=== PATIENT | male | born 1940 | race Caucasian/White ===

== ENCOUNTER → 2016-09-09 | Outpatient (REF) | payer OTHER ==
[~2016-09-09] MED LIST: *BLDWK7; ASPI1TAB PO; AUG875 PO; BACTRIMDS PO; BACTROOINT TOPICALLY; CAHNTIXC PO; CHAN0.5P PO; ELIDEL TOPICAL; EYELEA INJ; HIBICLENS TOPICAL; LEVA500T PO; LIPITOR20 PO; LOSA50TA20 PO; LOVA20TA2 PO; LOVASTAT20 PO; LUTE20CA PO; MULTCAP PO; OXYC-517 PO; PAXI20TA3 PO; PAXIL20 PO; PAXIL40 PO; RIFAMPIN3 PO; TRENTAL400 PO; TUSSIONEX PO; Trental PO; WELLBUT PO; [UNRECOGNIZED DRUG - OTHER] TOPICAL
== END ==
LOC: M SMT 13:01
PROVIDERS: ATTEND Urology
DX: R10.2 Pelvic and perineal pain (principal)
CPT/HCPCS: 81001; 87086; G0463

== ENCOUNTER → 2016-09-30 | Outpatient (CLI) | payer OTHER ==
[~2016-09-30] MED LIST changes: +ISOVUE-370 76% 100ML VIAL (Q9967) As Ordered ONE
--- NOTE | 2016-10-01 06:01 | REP ---
Clinical: Pelvic pain. Technique: Axial contrast enhanced images from the lung bases to the pubic symphysis using 100 ml Isovue 370 intravenous contrast material with precontrast and delayed images of the abdomen as well as coronal and sagittal re-formations. Comparison: 04/16/2016. Findings: Lung bases demonstrate mild chronic and posterior dependent changes. Visualized heart and pericardium normal. Fatty infiltration to the liver appreciated without focal hepatic lesion identified. Spleen, pancreas, gallbladder, and bilateral adrenal glands are normal. Kidneys demonstrate mild chronic perinephric stranding and bilateral hypodensities compatible with cysts measuring up to 1.4 cm in the right kidney. The enteric system is without obstruction or acute inflammatory process. Few scattered sigmoid diverticula noted without acute diverticulitis. The patient is status post prior right hemicolectomy. Pelvis demonstrates normal bladder and findings to suggest prior prostatectomy. No pelvic fluid or ascites. No free air. No significant adenopathy. Atherosclerotic changes of the aorta and vasculature noted without aneurysm. Surrounding musculoskeletal structures demonstrate age-related changes without focal osseous abnormality. Impression: 1. Fatty infiltration to the liver without focal hepatic lesion identified. 2. Few scattered sigmoid diverticula without acute diverticulitis. 3. Small subcentimeter bilateral renal cysts and 1.4 cm right renal cyst. 4. No acute abdominopelvic pathology appreciated. Signed by Micah Shelton MD 10/01/2016 05:52 A
== END ==
LOC: M RAD 08:07
PROVIDERS: ATTEND Urology
DX: R10.2 Pelvic and perineal pain (principal); K76.0 Fatty (change of) liver, not elsewhere classified; K57.32 Diverticulitis of large intestine without perforation or abscess without bleeding; N28.1 Cyst of kidney, acquired
CPT/HCPCS: 74178; Q9967

== ENCOUNTER → 2017-06-07 | Outpatient (REF) | payer OTHER ==
[2017-06-07 12:45] LABS: PROSTATIC SPECIFIC AG MONITOR 0.22 NG/ML (< 4.0)
== END ==
LOC: M SMT 09:45
DX: Z85.46 Personal history of malignant neoplasm of prostate (principal)
CPT/HCPCS: 84153

== ENCOUNTER → 2018-03-08 | Day surgery (SDC) | payer OTHER ==
[~2018-03-08] MED LIST changes: -*BLDWK7; -ASPI1TAB PO; -AUG875 PO; -BACTRIMDS PO; -BACTROOINT TOPICALLY; -CAHNTIXC PO; -CHAN0.5P PO; -ELIDEL TOPICAL; -EYELEA INJ; -HIBICLENS TOPICAL; -ISOVUE-370 76% 100ML VIAL (Q9967) As Ordered ONE; -LEVA500T PO; +LIDOCAINE 2% INJ 100 MG/5 ML SDV (FOR ANES.) As Ordered; -LIPITOR20 PO; -LOSA50TA20 PO; -LOVA20TA2 PO; -LOVASTAT20 PO; -LUTE20CA PO; -MULTCAP PO; -OXYC-517 PO; -PAXI20TA3 PO; -PAXIL20 PO; -PAXIL40 PO; +PROPOFOL 200 MG/20 ML VIAL As Ordered; -RIFAMPIN3 PO; -TRENTAL400 PO; -TUSSIONEX PO; -Trental PO; -WELLBUT PO; -[UNRECOGNIZED DRUG - OTHER] TOPICAL
[2018-03-08] MEDS: NS 1,000 ML IV (11:18)
== END | disposition home or self-care (01) ==
LOC: M OPP 10:46
DX: Z86.010 Personal history of colon polyps (principal); Z98.0 Intestinal bypass and anastomosis status; D12.3 Benign neoplasm of transverse colon
CPT/HCPCS: 45380

== ENCOUNTER → 2018-06-28 | Outpatient (CLI) | payer MEDICARE ==
[~2018-06-28] MED LIST changes: +*BLDWK7; +ASPI1TAB PO; +AUG875 PO; +BACTRIMDS PO; +BACTROOINT TOPICALLY; +CAHNTIXC PO; +CHAN0.5P PO; +ELIDEL TOPICAL; +EYELEA INJ; +HIBICLENS TOPICAL; +INDA125TA PO; +LEVA1TAB2 PO; -LIDOCAINE 2% INJ 100 MG/5 ML SDV (FOR ANES.) As Ordered; +LIPITOR20 PO; +LOSA50TA88 PO; +LOVA20TA2 PO; +LOVASTAT20 PO; +LUTE20CA PO; +MULTCAP PO; +OCUVTAB4 PO; +OXYC-517 PO; +PAXI20TA29 PO; +PAXIL20 PO; +PAXIL40 PO; +POTA10TA16 PO; -PROPOFOL 200 MG/20 ML VIAL As Ordered; +RIFAMPIN3 PO; +RIVA1DIS2; +TRENTAL400 PO; +TUSSIONEX PO; +Trental PO; +WELLBUT PO; +[UNRECOGNIZED DRUG - OTHER] TOPICAL
--- NOTE | 2018-06-28 09:12 | REP ---
BILATERAL LOWER EXTREMITY DOPPLER ARTERIAL ULTRASOUND: 06/28/2018. Clinical history: Claudication. Findings: There are no prior studies. Pulses on the right include brachial 150, dorsalis pedis with brachial 150, dorsalis pedis 140, RETURNS SUPERVISOR 120 with TATYANA 0.77. On the left brachial pulse 155, dorsalis pedis 140, RETURNS SUPERVISOR 110 with TATYANA 0.71. Right lower extremity: Peak systolic velocity: Phasicity:CAP AND STUD MACHINE OPERATOR: 154 cm/S triphasicProfunda: 119 cm/S biphasicSFA proximal: 122 cm/S triphasicSFA mid: 125 cm/S biphasicSFA distal: 109 cm/S biphasicPopliteal: 61 cm/S biphasicATA proximal: 44 cm/S biphasicTibioperoneal trunk: 41 cm/S biphasicPTA proximal: 43 cm/S biphasicPTA distal: 56 cm/S biphasicATA distal: 70 cm/S biphasic Left lower extremity: Peak systolic velocity: Phasicity:CAP AND STUD MACHINE OPERATOR: 145 cm/S triphasicProfunda: 271 cm/S monophasicSFA proximal: 204 cm/S monophasicSFA mid: 71 cm/S biphasicSFA distal: 60 cm/S biphasicPopliteal: 38 cm/S biphasicATA proximal: 37 cm/S biphasicTibioperoneal trunk: 36 cm/S biphasicPTA proximal: 57 cm/S biphasicPTA distal: 29 cm/S biphasicATA distal: 61 cm/S biphasic. There is scattered calcific plaque in small moderate volumes bilaterally. No visible significant stenosis on the right on the left. There is a stenosis in the left common femoral artery at the bifurcation. Another along the proximal SFA. Electronically Signed by Obie Castro MD 06/28/2018 08:33 P
== END ==
LOC: M RAD 06:20
PROVIDERS: ATTEND Surgery Vascular Surgery
DX: I70.213 Atherosclerosis of native arteries of extremities with intermittent claudication, bilateral legs (principal)

== ENCOUNTER 2018-10-19 10:51 | Emergency (ER) | payer MEDICARE ==
[~2018-10-19] VITALS: Ht 180.3 cm; Wt 97.7 kg
[~2018-10-19 10:51] MED LIST changes: -ASPI1TAB PO; +ASPI81TA26 PO
[2018-10-19] MEDS ORDERED: ASPIRIN 81 MG CHEW TABLET PO ONE (11:30)
[2018-10-19 11:39] LABS: BASO # 0.1 10^3/uL (0.0-0.2); BASO % 0.8 % (0.0-1.0); EOS # 0.1 10^3/uL (0.0-0.50); EOS % 1.3 % (0.0-3.0); HEMATOCRIT 40.8 % (42.0-52.0); HEMOGLOBIN 13.7 g/dl (13.5-17.5); LYMPH # 1.2 10^3/uL (1.5-4.5); LYMPH % 19.9 % (24.0-44.0); MEAN CORPUSCULAR HEMOGLOBIN 33.2 pg (27.0-33.0); MEAN CORPUSCULAR HGB CONC 33.6 g/dl (32.0-36.5); MEAN CORPUSCULAR VOLUME 98.8 fl (80.0-96.0); MONO # 0.6 10^3/uL (0.0-0.8); MONO % 8.9 % (0.0-5.0); NEUTROPHILS # 4.3 10^3/uL (1.8-7.7); NEUTROPHILS % 68.8 % (36.0-66.0); PLATELET COUNT, AUTOMATED 229 10^3/uL (150-450); RED BLOOD COUNT 4.13 10^6/uL (4.30-6.10); WHITE BLOOD COUNT 6.2 10^3/uL (4.0-10.0)
[2018-10-19 12:05] LABS: CALCIUM LEVEL 8.8 MG/DL (8.8-10.2); CK-MB VALUE MASS 1.1 NG/ML (<3.6); CREATININE FOR GFR 1.37 MG/DL (0.70-1.30); GLOMERULAR FILTRATION RATE 53.9 (>42); MB/CK RELATIVE INDEX 1.11 (< OR =4); POTASSIUM SERUM 3.6 MEQ/L (3.5-5.1); TROPONIN I 0.04 NG/ML (< 0.10)
--- NOTE | 2018-10-19 12:27 | REP ---
Clinical: Chest pain . Comparison: 04/16/2016 . Findings: The mediastinum and cardiac silhouette are stable and within normal limits for portable technique. The lung alonzo are clear without acute consolidation, effusion, or pneumothorax. Skeletal structures are intact. Impression: No acute cardiopulmonary process appreciated. Electronically Signed by Micah Shelton MD 10/19/2018 12:18 P
--- NOTE | 2018-10-19 13:33 | REP ---
KUB ABDOMEN AND PELVIS: Two KUB films of abdomen and pelvis performed. There is mild to moderate scattered fecal material throughout the colon. No dilated small bowel loops are seen There are diffuse degenerative changes of the spine. Tiny phlebolith is seen in the left pelvis. IMPRESSION: Mild to moderate diffuse fecal material in the colon. Electronically Signed by Vinicius Barnard MD 10/19/2018 04:33 P
[2018-10-19 13:57] LABS: CK-MB VALUE MASS < 1.0 NG/ML (<3.6); CPK CREATINE PHOSPHOKINASE 98 U/L (39-308); MB/CK RELATIVE INDEX 1.02 (< OR =4); TROPONIN I 0.05 NG/ML (< 0.10)
[2018-10-19 14:45] VITALS: BP 159/78
[2018-10-19] MEDS ORDERED: ASPI81TA85 PO (14:51)
[2018-10-19] MEDS ORDERED: PENT400T23 PO (14:51)
[2018-10-19] MEDS ORDERED: MIRA3350 PO (14:52)
[2018-10-19] MEDS ORDERED: COLA100C5 PO (14:52)
--- NOTE | 2018-10-20 10:28 | ECGEPIP ---
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
--- NOTE | 2018-10-20 10:31 | ECGEPIP ---
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
== END 2018-10-19 15:15 | disposition home or self-care (01) ==
LOC: M ED 10:51
DX: K59.00 Constipation, unspecified (principal); R10.9 Unspecified abdominal pain; E78.5 Hyperlipidemia, unspecified; I25.10 Atherosclerotic heart disease of native coronary artery without angina pectoris; G62.9 Polyneuropathy, unspecified; N40.0 Benign prostatic hyperplasia without lower urinary tract symptoms; I73.9 Peripheral vascular disease, unspecified; Z95.5 Presence of coronary angioplasty implant and graft; Z85.46 Personal history of malignant neoplasm of prostate

== ENCOUNTER → 2018-12-14 | Outpatient (CLI) | payer MEDICARE ==
[~2018-12-14] MED LIST changes: +ASPI81TA85 PO; +COLA100C5 PO; +MIRA3350 PO; +PENT400T23 PO; +PROHANCE 279.3MG/ML 5ML VIAL (A9576) As Ordered ONE
--- NOTE | 2018-12-15 08:37 | REP ---
MRI of the brain without and with contrast Indication: Benign neoplasm of the meninges. Comparison: None Technique: MRI of the brain was performed utilizing axial T1, T2, FLAIR, DWI and sagittal T1 FLAIR. Following the uneventful intravenous administration of 9.7 mL of ProHance, axial coronal and T1-1 FLAIR sequences were acquired. Findings: There is a 35 x 23 x 7 mm (AP, TR, CC) dural-based homogeneously enhancing lesion along the left sphenoid wing consistent with meningioma. This lesion is T1 isointense and T2 slightly hyperintense signal. There is mild local mass effect. There is no midline shift or basal cistern effacement. No other mass is identified. There is no restricted effusion to suggest acute ischemia or infarction. There is a chronic lacunar infarct within the left basal ganglia. There are moderate scattered T2 hyperintensity within the periventricular, subcortical and pontine white matter show nonspecific but suggestive of microvascular ischemic disease. The visualized flow voids are patent. The left kaibab ocular lens is surgically absent. The visualized paranasal sinuses and left mastoid air cells are clear. There is fluid within the right mastoid air cells. Impression: 35 x 23 x 7 mm dural-based enhancing lesion along the left sphenoid wing consistent with meningioma. No acute ischemia or infarction. Chronic lacunar infarct within the left basal ganglia. Moderate white matter changes. Electronically Signed by Paige Murphy MD 12/15/2018 08:29 A
== END ==
LOC: M RAD 16:22
PROVIDERS: ATTEND Family Medicine
DX: D32.9 Benign neoplasm of meninges, unspecified (principal)
CPT/HCPCS: 70553; A9576

== ENCOUNTER → 2019-02-02 | Outpatient (CLI) | payer MEDICARE ==
[~2019-02-02] MED LIST changes: +FLUO1SOL TOP; +METRCRM TOP; -PROHANCE 279.3MG/ML 5ML VIAL (A9576) As Ordered ONE
--- NOTE | 2019-02-03 09:59 | RADONC ---
RADIATION ONCOLOGY CONSULTATION NOTE DATE: 02/02/2019 CHART NUMBER: [id number] DIAGNOSIS: Prostate cancer. STAGE: Stage II C, T2b, N0, M0, PSA 18.8, [place] score 8 (4-4), grade group 4. ECOG PERFORMANCE STATUS: 1 CONSULTATION NOTE: Mr. Ragland is a very pleasant, 78-year-old white male with the diagnosis of a biochemical recurrence of a stage II C, T2b, N0, M0, poorly differentiated [place] score 8 (4-4) adenocarcinoma of the prostate, grade group 4 with an initial PSA level of 18.8. HISTORY OF PRESENT ILLNESS: The patient was in his usual state of health, who was found to have an elevated PSA on 06/26/2015 of 18.80. On 10/15/2015, the patient underwent robotic-assisted radical prostatectomy and pelvic lymph node sampling. Pathology revealed a Oskalo[place] score 8 (4-4) adenocarcinoma of the prostate. The carcinoma was bilateral. The dominant tumor nodule measured 2.5 cm. The percent of prostate involved with tumor was 15%. Carcinoma was seen on the inked margin of the right posterior superior section of the specimen. In addition, there were multiple areas of perineural invasion. Two left pelvic lymph nodes and two right pelvic lymph nodes were sampled and negative for metastatic disease. The patient was followed and his initial postoperative PSA level went down to 0.2. Over the last 4 years it has slowly risen and as of 01/03/2019 has reached 0.4. The patient is now being referred to us status post robotic-assisted radical prostatectomy for consideration of postoperative radiation therapy in attempt to achieve local control in this patient with positive margins, perineural invasion and biochemical recurrence. PAST MEDICAL HISTORY: The patient's past medical history is positive for arthritis, hypertension and a stroke, macular degeneration. He reports that he has had colon resection on 01/30/2008. He had cardiac stents done in June of 2012. He had a stent replacement in June 2013. He has had knee surgery, an appendectomy and hand surgery. He had right elbow surgery. Apparently, some time ago the patient had a stroke but he is unaware of when this happened. ALLERGIES: The patient has NO KNOWN DRUG ALLERGIES. SOCIAL HISTORY: The patient has smoked 1-1/2 packs of cigarettes per day for 53 years. He quit in 2007. He does not abuse alcohol. FAMILY HISTORY: The patient's family history is positive for a father with liver cancer and a sister with some type of cancer. REVIEW OF SYSTEMS: The patient's review of systems is positive for hearing loss, decreased energy, weakness in his arms and legs, occasional headaches, some anxiety and depression, anorexia, visual disturbances due to his macular degeneration, occasional dizziness and physical limitations since his stroke. He denies nausea, vomiting, fevers, chills, night sweats, chest pain, rectal bleeding, urinary or bowel difficulties, or bone pain. PHYSICAL EXAMINATION: The patient is a well-developed, well-nourished male in no acute distress. HEENT exam is normocephalic, atraumatic. Extraocular movements are intact. There is no palpable cervical, supraclavicular, infraclavicular, axillary, or inguinal lymphadenopathy present. Lungs are clear to auscultation and percussion. Heart has a regular rate and rhythm. Abdomen is benign with no hepatosplenomegaly, masses, or tenderness. Rectal examination reveals a normal anal sphincter tone. The patient's prostate bed is smooth with no evidence of nodularity. Skeletal examination reveals no tenderness to pressure or percussion of the bony skeleton. Extremities reveal no clubbing, cyanosis, or edema. Neurologic exam is grossly intact, as is the remainder of the physical examination. ASSESSMENT: Clearly the patient is a candidate for external beam radiation therapy and I have so informed him. I have discussed with the patient in detail the potential benefits as well as possible acute and chronic sequelae of external beam radiation therapy. We discussed logistics of treatment planning, simulation and subsequent fractionated daily radiation treatments. I have scheduled the patient for the next available simulation slot and radiation treatments will begin subsequently. Thank you for allowing us to participate in the care of this very pleasant gentleman. If I could be of any further assistance or provide you with any information, please feel free to contact me anytime. As always, warm regards. cc: MD Dave Bridges MD
== END ==
LOC: M ONCR 13:36
PROVIDERS: ATTEND Radiology Radiation Oncology
DX: C61 Malignant neoplasm of prostate (principal)

== ENCOUNTER → 2019-02-16 | Outpatient (RCR) | payer MEDICARE ==
[2019-02-06 11:09] LABS: HEMATOCRIT 40.7 % (42.0-52.0); HEMOGLOBIN 13.5 g/dl (13.5-17.5); LYMPH % 21.7 % (24.0-44.0); MEAN CORPUSCULAR HEMOGLOBIN 33.7 pg (27.0-33.0); MEAN CORPUSCULAR HGB CONC 33.2 g/dl (32.0-36.5); MEAN CORPUSCULAR VOLUME 101.4 fl (80.0-96.0); NEUTROPHILS % 72.1 % (36.0-66.0); RED BLOOD COUNT 4.01 10^6/uL (4.30-6.10)
--- NOTE | 2019-02-07 08:05 | RADONC ---
RADIATION ONCOLOGY SIMULATION NOTE DATE: 02/06/2019 CHART #: [id number] SIMULATION NOTE: This patient has a diagnosis of a malignant neoplasm of the prostate, stage II C, [id number], grade 4. He is status post prostatectomy and we will be treating with radiotherapy to the prostatic bed. The patient was placed in an appropriate position (supine) after an immobilization device was constructed. The patient was immobilized successfully with the immobilization device and 3 mm images were captured through the area of the pelvic region for treatment planning purposes. The patient tolerated the simulation process as well as fabrication of the immobilization device very well with no significant untoward side effects. I was present during the entire time of the simulation which went without any major issues. After the images are evaluated and contoured, a plan will be generated. [facility]
--- NOTE | 2019-02-13 09:55 | RADONC ---
RADIATION ONCOLOGY PROGRESS NOTE DATE: 02/13/2019 CHART #: [id number] Mr. Ragland came in today for his first fraction of radiation to his prostate. It was tolerated without difficulty or discomfort. The patient came in today reporting that he had some dizziness. He felt a little dizzy and went to sit down in our waiting room, but ended up falling. The patient reports that he has fallen a lot over the last 2 years, he gets dizzy when he stands up. We took the patient's vital signs and he appears to have orthostatic changes. The patient reports that he is a patient of Dr. Kruse, a folder seamer here. The patient's says that he has not had any fluid or other intake since 4 o'clock yesterday afternoon, for now making that now 18 hours. He has no other complaints at this time. PHYSICAL EXAMINATION: As noted above, vital signs were taken. The skin clearly showed no evidence of radiation change present. Vital signs are documented in our electronic medical record. Radiation was well tolerated and will continue as scheduled. He has been instructed to contact his folder seamer and primary care physician as well as to have some oral intake.
== END ==
LOC: M ONCR 02-06 10:08
PROVIDERS: ATTEND Radiology Radiation Oncology
DX: C61 Malignant neoplasm of prostate (principal)

== ENCOUNTER 2019-03-15 08:53 | Outpatient (RCR) | payer MEDICARE ==
--- NOTE | 2019-02-20 13:39 | RADONC ---
RADIATION ONCOLOGY PROGRESS NOTE DATE OF SERVICE: 02/20/2019 CHART NUMBER: [id number]. PROGRESS NOTE: Obie Infante with the diagnosis of adenocarcinoma of the prostate is currently receiving local regional radiotherapy; and thus far, he has achieved a dose of 1080 cGy. He appears to be tolerating his radiotherapy reasonably well, denying any nausea or specific side effects related to his disease or to his treatments. REVIEW OF SYSTEMS: He specifically denies any nausea, vomiting, diarrhea, dysuria, hematuria, or blood per rectum. His energy level is such that he is able to maintain most day-to-day activities without any alteration of his lifestyle. Skin irritation is denied. EXAMINATION AND FINDINGS: The skin within the irradiated volume shows neither erythema nor desquamation. Lymphatics: No palpable peripheral lymphadenopathy is appreciated. Lungs are clear to auscultation and percussion. Heart: Regular without murmurs. The remainder of the physical examination is unchanged. IMPRESSION: Tolerating therapy well. PLAN: Treatments to continue. MTDD
--- NOTE | 2019-02-27 10:10 | RADONC ---
RADIATION ONCOLOGY PROGRESS NOTE DATE: 02/27/2019 CHART NUMBER: [id number] Mr. Ragland is presently at a dose of 1980 cGy to his prostate bed and is tolerating treatments quite well at this point with no complaints related to his radiation therapy. He is having no urinary or bowel difficulties and no bone pain. REVIEW OF SYSTEMS: The patient's review of systems is noncontributory. He denies nausea, vomiting, fevers, chills, night sweats, diplopia, headaches, anxiety or depression, anorexia, weight loss, visual disturbances, chest pain, urinary or bowel difficulties, bone pain or neurological problems. PHYSICAL EXAMINATION The patient's skin is in good condition with no evidence of radiation change present. There is no moist or dry desquamation. The remainder of his physical exam remains unchanged. Mr. Ragland is tolerating treatments quite well and radiation will continue as scheduled.
--- NOTE | 2019-03-07 09:24 | RADONC ---
RADIATION ONCOLOGY PROGRESS NOTE DATE: 03/06/2019 CHART NUMBER: [id number] PROGRESS NOTE: Mr. Ragland is presently at a dose of 2880 cGy to his prostate bed and is tolerating treatments quite well at this point with no complaints related to his radiation therapy. He is having no urinary or bowel difficulties and no bone pain. REVIEW OF SYSTEMS: The patient's review of systems is noncontributory. Denies nausea, vomiting, fevers, chills, night sweats, diplopia, headaches, anxiety or depression, anorexia, weight loss, visual disturbances, chest pain, urinary or bowel difficulties, bone pain, or neurological problems. PHYSICAL EXAMINATION: The patient's skin is in good condition with no evidence of radiation change present. There is no moist or dry desquamation. The remainder of his physical exam remains unchanged. Mr. Ragland is tolerating treatments quite well and radiation will continue as scheduled.
--- NOTE | 2019-03-15 07:19 | RADONC ---
RADIATION ONCOLOGY PROGRESS NOTE DATE: 03/13/2019 CHART #; [id number] Mr. Ragland is presently at a dose of 3780 cGy to his prostate bed and is tolerating treatments quite well at this point with no complaints related to his radiation therapy other than some loose bowel movements. REVIEW OF SYSTEMS: The patient's review of systems is positive for a recent loose bowel movement but is otherwise noncontributory. Denies nausea, vomiting, fevers, chills, night sweats, diplopia, headaches, anxiety or depression, anorexia, weight loss, visual disturbances, chest pain, urinary or bowel difficulties, bone pain, or neurological problems. PHYSICAL EXAMINATION: The patient's skin is in good condition with no evidence of moist or dry desquamation. The remainder of his physical exam remains unchanged. Mr. Ragland is tolerating treatments quite well and radiation will continue as scheduled.
== END 2019-03-18 ==
LOC: M ONCR 08:53
PROVIDERS: ATTEND Radiology Radiation Oncology
DX: C61 Malignant neoplasm of prostate (principal)

== ENCOUNTER 2019-04-06 08:56 | Outpatient (RCR) | payer MEDICARE ==
--- NOTE | 2019-03-21 10:33 | RADONC ---
RADIATION ONCOLOGY NOTE DATE OF SERVICE: 03/21/2019 CHART #: [id number] Mr. Ragland who carries a diagnosis of prostate CA whose radiation is delivered to his prostatic bed. So far, he has received a dose of 5400 cGy in 180 cGy daily fractions. He has no complaints. He denies any urinary frequency, dysuria, hematuria. He denies bowel problems. Nocturia twice. Treatment will continue as planned.
--- NOTE | 2019-03-27 13:13 | RADONC ---
RADIATION ONCOLOGY PROGRESS NOTE DATE: 03/27/2019 CHART NUMBER: [id number] Mr. Ragland is presently at a dose of 5220 cGy to his prostate bed and is tolerating treatments quite well at this point with no complaints related to his radiation therapy. He is having no urinary or bowel difficulties and no bone pain. The patient's review of systems is noncontributory. Denies nausea, vomiting, fevers, chills, night sweats, diplopia, headaches, anxiety or depression, anorexia, weight loss, visual disturbances, chest pain, urinary or bowel difficulties, bone pain, or neurological problems. PHYSICAL EXAMINATION: The patient's skin is in good condition with no evidence of radiation change present. There is no moist or dry desquamation. The remainder of his physical exam remains unchanged. Mr. Ragland is tolerating treatments quite well and radiation will continue as scheduled.
--- NOTE | 2019-04-05 06:27 | RADONC ---
RADIATION ONCOLOGY PROGRESS NOTE DATE: 04/03/2019 CHART #: [id number] Mr. Ragland is presently at a dose of 6160 cGy to his prostate bed and is tolerating treatments quite well at this point with no significant difficulties related to his radiation therapy. He does complain of some fatigue. REVIEW OF SYSTEMS: The patient's review of systems is positive for fatigue but is otherwise noncontributory. Denies nausea, vomiting, fevers, chills, night sweats, diplopia, headaches, anxiety or depression, anorexia, weight loss, visual disturbances, chest pain, urinary or bowel difficulties, bone pain, or neurological problems. PHYSICAL EXAMINATION: The patient's skin is in good condition with no evidence of moist or dry desquamation. The remainder of his physical exam remains unchanged. Mr. Ragland is tolerating treatments quite well and radiation will continue as scheduled.
--- NOTE | 2019-04-10 14:36 | RADONC ---
RADIATION ONCOLOGY TREATMENT SUMMARY DATE: 04/06/2019 CHART NUMBER: [id number] DIAGNOSIS: Prostate cancer. STAGE: IIC, [id number], PSA 18.8, Krysta score 8 (4-4), grade group 4. ECOG PERFORMANCE STATUS: 1 TREATMENT SUMMARY: Mr. Ragland is a very pleasant 78-year-old white male with the diagnosis of a biochemical recurrence of a stage IIC, [id number], poorly differentiated, [place] score 8 (4-4) adenocarcinoma of the prostate, grade group 4 with an initial PSA level of 18.8. We treated the patient to his prostate bed for a total dose of 6660 cGy delivered in 37 fractions of 180 cGy each over 51 elapsed days from 02/13/2019 through 04/06/2019. The patient's prostate bed was treated on the linear accelerator utilizing a 3D conformal technique with a 15 MV photon beam via anterior-posterior left and right lateral alonzo. We initially treated a larger field to a dose of 4500 cGy to include the first echelon of lymph nodes and subsequently coned down to the prostate bed itself for an additional 2160 cGy, once again bringing the prostate bed to a total dose of 6660 cGy. Mr. Ragland tolerated his treatments quite well and was able to complete therapy as prescribed. I have scheduled the patient to see me again in 1 month for further followup. He will also continue to follow his other physicians as well. Thank you for allowing us to participate in the care of this very pleasant gentleman. If I could be of any further assistance or provide you with any information, please feel free to contact me at anytime. cc: MD Dave Bridges MD [facility]
== END 2019-04-18 ==
LOC: M ONCR 08:56
PROVIDERS: ATTEND Radiology Radiation Oncology
DX: C61 Malignant neoplasm of prostate (principal)

== ENCOUNTER → 2019-05-10 | Outpatient (CLI) | payer MEDICARE ==
--- NOTE | 2019-05-11 07:41 | RADONC ---
RADIATION ONCOLOGY FOLLOWUP NOTE DATE: 05/10/2019 CHART #: [id number] DIAGNOSIS: Prostate cancer. STAGE: II C, T2b, N0, M0, initial PSA 18.8, Krysta score 8 (4-4), grade group 4. ECOG PERFORMANCE STATUS: 1. FOLLOWUP NOTE: Mr. Ragland is a very pleasant 78-year-old white male with the diagnosis of a biochemical recurrence of a stage II C, T2b, N0, M0, poorly differentiated Krysta score 8 (4-4) adenocarcinoma of prostate, grade group 4, with initial PSA level of 18.8, who is presenting to us today for routine followup visit 1 month post completion of external beam radiation therapy. The patient presents today reporting that he is doing quite well with no complaints at this time related to his radiation therapy or disease. He is having no urinary or bowel difficulties. No bone pain. REVIEW OF SYSTEMS: The patient's review of systems is noncontributory. Denies nausea, vomiting, fevers, chills, night sweats, diplopia, headaches, anxiety or depression, anorexia, weight loss, visual disturbances, chest pain, urinary or bowel difficulties, bone pain, or neurological problems. PHYSICAL EXAMINATION: The patient is a well-developed, well-nourished male in no acute distress. HEENT exam is normocephalic, atraumatic. Extraocular movements are intact. There is no palpable cervical, supraclavicular, infraclavicular, axillary, or inguinal lymphadenopathy present. Lungs are clear to auscultation and percussion. Heart has a regular rate and rhythm. Abdomen is benign with no hepatosplenomegaly, masses, or tenderness. Rectal examination reveals a normal anal sphincter tone. His prostate bed is smooth with no evidence of nodularity. Skeletal examination reveals no tenderness to pressure or percussion of the bony skeleton. Extremities reveal no clubbing, cyanosis, or edema. Neurologic exam is grossly intact, as is the remainder of the physical examination. ASSESSMENT: The patient is clinically NANCY at this time. I await the results of his PSA test which is done today and I do not have at this time. The patient is scheduled to be seen by Dr. Dangelo in 3 months and will continue his routine followup at Dr. Dangelo's office. He is therefore being discharged from my followup except on a p.r.n. basis. cc: MD Dave Bridges MD
== END ==
LOC: M ONCR 09:12
PROVIDERS: ATTEND Radiology Radiation Oncology
DX: Z85.46 Personal history of malignant neoplasm of prostate (principal)
CPT/HCPCS: 36415; 84153; G0463

== ENCOUNTER 2019-10-27 12:36 | Emergency (ER) | payer MEDICARE ==
[~2019-10-27] VITALS: Ht 180.3 cm; Wt 93.0 kg
[2019-10-27 13:00] LABS: BASO # 0.1 10^3/uL (0.0-0.2); BASO % 0.8 % (0.0-1.0); EOS # 0.1 10^3/uL (0.0-0.5); EOS % 0.7 % (0.0-3.0); HEMOGLOBIN 13.4 g/dl (13.5-17.5); LYMPH # 1.1 10^3/uL (1.5-5.0); LYMPH % 14.8 % (24.0-44.0); MEAN CORPUSCULAR HEMOGLOBIN 33.2 pg (27.0-33.0); MEAN CORPUSCULAR HGB CONC 34.4 g/dl (32.0-36.5); MEAN CORPUSCULAR VOLUME 96.5 fl (80.0-96.0); MONO # 0.7 10^3/uL (0.0-0.8); MONO % 8.9 % (0.0-5.0); NEUTROPHILS # 5.6 10^3/uL (1.5-8.5); NEUTROPHILS % 74.5 % (36.0-66.0); PLATELET COUNT, AUTOMATED 240 10^3/uL (150-450); RED BLOOD COUNT 4.04 10^6/uL (4.30-6.10); WHITE BLOOD COUNT 7.5 10^3/uL (4.0-10.0)
[2019-10-27] MEDS ORDERED: NS 1,000 ML IV ONE (13:00)
[2019-10-27 13:33] LABS: ACETAMINOPHEN LEVEL < 2.0 UG/ML (10.0-30.0); ALT/SGPT 27 U/L (12-78); BILIRUBIN,DIRECT 0.1 MG/DL (0.0-0.2); BILIRUBIN,TOTAL 0.5 MG/DL (0.2-1.0); BLOOD UREA NITROGEN 22 MG/DL (7-18); CALCIUM LEVEL 9.1 MG/DL (8.8-10.2); CARBON DIOXIDE LEVEL 23 MEQ/L (21-32); CHLORIDE LEVEL 107 MEQ/L (98-107); CREATININE FOR GFR 1.62 MG/DL (0.70-1.30); GLOMERULAR FILTRATION RATE 44.3 (>42); GLUCOSE, FASTING 99 MG/DL (70-100); POTASSIUM SERUM 3.9 MEQ/L (3.5-5.1); SALICYLATE LEVEL < 1.7 MG/DL (5.0-30.0); SODIUM LEVEL 139 MEQ/L (136-145); TOTAL PROTEIN 6.9 GM/DL (6.4-8.2)
[2019-10-27 13:34] LABS: ETHYL ALCOHOL (ETHANOL) < 0.003 % (0.000-0.010)
[2019-10-27 14:45] VITALS: BP 139/70
[2019-10-27 15:09] LABS: AMPHETAMINES LEVEL URINE NEGATIVE (NEGATIVE); BARBITURATES URINE NEGATIVE (NEGATIVE); BENZODIAZEPINES URINE NEGATIVE (NEGATIVE); CANNABINOIDS URINE NEGATIVE (NEGATIVE); COCAINE METABOLITE URINE NEGATIVE (NEGATIVE); METHADONE URINE NEGATIVE (NEGATIVE); OPIATES URINE NEGATIVE (NEGATIVE); PHENCYCLIDINE URINE NEGATIVE (NEGATIVE)
--- NOTE | 2019-10-27 15:25 | REP ---
CT BRAIN WITHOUT CONTRAST: CT brain performed without IV contrast. Coronal reconstructions are performed. There is moderate atrophy. There no midline shift or mass effect. There is periventricular small vessel ischemic change, which is chronic in nature. 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 No acute hemorrhage is seen. There is no extra-axial fluid collection. Vascular calcifications are seen in the carotid siphons. Visualized paranasal sinuses are clear. IMPRESSION: Chronic changes. No acute intracranial hemorrhage, midline shift, or mass effect. Electronically Signed by Vinicius Barnard MD 10/29/2019 11:22 P
--- NOTE | 2019-10-27 16:25 | REP ---
REASON FOR EXAM: Altered mental status. FINDINGS: The technique utilized in obtaining the radiograph has magnified the cardiac silhouette and accentuated the interstitial markings. The superior mediastinal structures are midline. The cardiac silhouette is unremarkable in size, shape, and position. The diaphragmatic surfaces of the lungs are regular, and the costophrenic angles are clear. The pulmonary alonzo are clear. The imaged osseous structures are intact. IMPRESSION: There is no acute cardiopulmonary disease. Electronically Signed by Elia Philippe DO 10/27/2019 04:55 P
--- NOTE | 2019-10-27 21:36 | ECGEPIP ---
[facility] - ED Test Date: 2019-10-27 Pat Name: JUSTO SHEIKH Department: Room: - Gender: Male [place] Consultant: lina : 1940 Requested By: MARY PRASAD Order Number: [id number] Reading MD: Julita Wilson Measurements Intervals [place] Rate: 92 P: MN: 0 QRS: -47 QRSD: 129 T: 83 QT: 361 QTc: 447 Interpretive Statements SINUS RHYTHM LEFT ANTERIOR FASCICULAR BLOCK LEFT VENTRICULAR HYPERTROPHY AND ST-T CHANGE IVCD Electronically Signed on 10-27-2019 21:36:06 EDT by Julita Wilson
--- NOTE | 2019-10-28 07:35 | REP ---
CT CERVICAL SPINE: CT cervical spine performed in the axial plane. Sagittal and coronal reconstruction images are performed. There is no compression fracture or malalignment. There is no prevertebral soft tissue swelling. There is moderate diffuse spurring. There is moderate disc space narrowing and subchondral sclerosis at C5-6. There is slight retrolisthesis of C5 on C6. There is diffuse sclerosis and spurring at the posterior facet joints. There is neural foraminal narrowing on the right at C3-4, C4-5, and C5-6. There is mild spinal stenosis at C5-6. IMPRESSION: Degenerative changes, as above. No evidence of acute fracture or dislocation. Electronically Signed by Vinicius Barnard MD 10/29/2019 11:22 P
== END 2019-10-27 15:08 | disposition home or self-care (01) ==
LOC: M ED 12:36
DX: R41.0 Disorientation, unspecified (principal); T67.3XXA Heat exhaustion, anhydrotic, initial encounter; Y92.9 Unspecified place or not applicable; Y93.9 Activity, unspecified; I44.4 Left anterior fascicular block; I45.89 Other specified conduction disorders; I51.9 Heart disease, unspecified; M46.02 Spinal enthesopathy, cervical region; R93.7 Abnormal findings on diagnostic imaging of other parts of musculoskeletal system; Z79.82 Long term (current) use of aspirin; Z79.899 Other long term (current) drug therapy
CPT/HCPCS: 36415; 70450; 71045; 72125; 80047; 80048; 80076; 80307; 81001; 83605; 84443; 84484; 85025; 87040; 93005; 93041; 94760; 96360; 99285; G0480

== ENCOUNTER 2019-11-22 16:35 | Emergency (ER) | payer MEDICARE ==
[~2019-11-22 16:35] MED LIST changes: -ASPI81TA85 PO; +ASPI81TA86 PO
[2019-11-22] MEDS ORDERED: ETOMIDATE INJ 20MG/10ML VIAL ONE (16:36)
[2019-11-22] MEDS ORDERED: SUCCINYLCHOLINE 100 MG/5 ML SYRINGE (J0330) ONE (16:36)
[2019-11-22] MEDS ORDERED: NOREPINEPHRINE 4 MG/4 ML AMP As Ordered ONE (16:51)
[2019-11-22] MEDS ORDERED: NOREPINEPHRINE 4 MG/4 ML AMP ONE (17:00)
[2019-11-22] MEDS ORDERED: UNASYN 3 GM VIAL ONE (17:00)
[2019-11-22] MEDS ORDERED: BOOSTRIX/ADACEL VACCINE (DIPHTH/PERTUSS/ACELL/TETANUS) 0.5ML SYR ONE (17:00)
[2019-11-22] MEDS ORDERED: UNASYN 3 GM VIAL As Ordered ONE (17:22)
[2019-11-22] MEDS ORDERED: BOOSTRIX/ADACEL VACCINE (DIPHTH/PERTUSS/ACELL/TETANUS) 0.5ML SYR As Ordered ONE (17:22)
[2019-12-22 11:51] LABS: INR 1.2; PROTHROMBIN TIME 15.5 SECONDS (11.8-14.0)
[2019-12-22 12:17] LABS: APPEARANCE, URINE CLEAR (CLEAR); BACTERIA, URINE AUTO NEGATIVE (NEGATIVE); BILIRUBIN, URINE AUTO NEGATIVE (NEGATIVE); BLOOD, URINE BLOOD NEGATIVE (NEGATIVE); COLOR, URINE YELLOW (YELLOW); GLUCOSE, URINE (UA) AUTO NEGATIVE (NEGATIVE); KETONE, URINE AUTO NEGATIVE (NEGATIVE); LEUKOCYTE ESTERASE, URINE AUTO NEGATIVE (NEGATIVE); MUCUS, URINE SMALL (NEGATIVE); NITRITE, URINE AUTO NEGATIVE (NEGATIVE); PROTEIN, URINE AUTO 2+ mg/dL (NEGATIVE); RBC, URINE AUTO 5 /HPF (0-3); SPECIFIC GRAVITY URINE AUTO 1.015 (1.002-1.035); SQUAMOUS EPITHELIAL CELL UR AU 0 /HPF (0-6); UROBILINOGEN, URINE AUTO 0.2 mg/dL (0.0-2.0); WBC, URINE AUTO 2 /HPF (0-3)
[2019-12-22 15:51] LABS: HEMATOCRIT 38.9 % (42.0-52.0); HEMOGLOBIN 12.5 g/dl (13.5-17.5); MEAN CORPUSCULAR HEMOGLOBIN 33.1 pg (27.0-33.0); MEAN CORPUSCULAR HGB CONC 32.1 g/dl (32.0-36.5); MEAN CORPUSCULAR VOLUME 102.9 fl (80.0-96.0); PLATELET COUNT, AUTOMATED 260 10^3/uL (150-450); RED BLOOD COUNT 3.78 10^6/uL (4.30-6.10); WHITE BLOOD COUNT 10.6 10^3/uL (4.0-10.0)
[2019-12-22 16:08] LABS: ERYTHROCYTE SEDIMENTATION RATE 9 mm/hr (0-20)
--- NOTE | 2020-01-04 17:16 | ECGEPIP ---
[facility] SEE SCANNED DOWNTIME REPORT MTDD
[2020-01-06 18:27] LABS: CALCIUM LEVEL 8.6 MG/DL (8.8-10.2); CREATININE FOR GFR 1.76 MG/DL (0.70-1.30); GLOMERULAR FILTRATION RATE 40.2 (>42); MAGNESIUM LEVEL 2.5 MG/DL (1.8-2.4); POTASSIUM SERUM 3.6 MEQ/L (3.5-5.1)
[2020-01-06 18:38] LABS: ABG PARTIAL PRESSURE CO2 47.4 mmHg (35.0-45.0); ABG PARTIAL PRESSURE O2 70.9 mmHg (75.0-100.0); ABG pH (ARTERIAL) 7.128 UNITS (7.350-7.450)
[2020-01-06 18:39] LABS: ABG BASE EXCESS -13.3 (-2.0-2.0); ABG HCO3 15.3 MEQ/L (22.0-26.0); ABG O2 SATURATION 87.9 % (95.0-99.0); ABG STANDARD HCO3 13.9 MEQ/L (22.0-26.0); ABG TOTAL CO2 16.8 MEQ/L (23.0-31.0)
--- NOTE | 2020-01-12 12:00 | REP ---
PORTABLE CHEST X-RAY: 2-VIEWS HISTORY: Post intubation. Trauma. FINDINGS: Endotracheal tube is seen in good position at the level of the transverse aorta. EKG monitoring electrodes are noted. There is mild gaseous distention of the stomach. The lungs are well-inflated and clear. The right hemidiaphragm is slightly elevated. Pleural angles are sharp. Mediastinum does not appear widened. IMPRESSION: Endotracheal tube in good position. Slightly elevated right hemidiaphragm. Right coronary artery stent material is visible. Mild gaseous distention of the stomach. AP PELVIS: FINDINGS: AP view of the pelvis demonstrates an intake bony pelvic ring. No pelvic or sacral fracture is seen. There is degenerative disc disease at L4-5. 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 No acute bony abnormality. IMPRESSION: No acute bony abnormality seen. MTDD
== END 2019-11-22 17:37 | disposition other institution (70) ==
LOC: M ED 16:35
DX: H54.8 Legal blindness, as defined in USA (principal); S02.81XA Fracture of other specified skull and facial bones, right side, initial encounter for closed fracture; S02.2XXA Fracture of nasal bones, initial encounter for closed fracture; S06.6X0A Traumatic subarachnoid hemorrhage without loss of consciousness, initial encounter; I67.82 Cerebral ischemia; S12.100A Unspecified displaced fracture of second cervical vertebra, initial encounter for closed fracture; I45.10 Unspecified right bundle-branch block; I44.4 Left anterior fascicular block; R94.31 Abnormal electrocardiogram [ECG] [EKG]; Z79.82 Long term (current) use of aspirin; Z79.899 Other long term (current) drug therapy
CPT/HCPCS: 31500; 51702; 70450; 71045; 72125; 72170; 80048; 81001; 82803; 83735; 85027; 85610; 85652; 85730; 87086; 90471; 90715; 93005; 96374; 99291; J0330